=== PATIENT | male | born 1975 | race Caucasian/White ===

== ENCOUNTER 2020-08-04 04:41 | Emergency (ER) | payer BC, SELFPAY ==
--- NOTE | ~2020-08-04 | CT_ITS ---
EXAMINATION: CT abdomen pelvis wo con DATE: 08/04/2020 05:24 INDICATION: Left flank pain. TECHNIQUE: Computed tomography (CT) of the abdomen and pelvis was performed without intravenous contr ast. Automated exposure control and iterative reconstruction technique were employed. The dose-length product was 738.51 mGy-cm. COMPARISON: None FINDINGS: Lung bases are clear. Heart size is normal. No pericardial or pleural effusion. Cholecystectomy clips at the gallbladder fossa. Multiple splenic desiccation is consistent with old granulomatous disease. Liver, pancreas, bilateral adrenal glands are normal. 2-3 mm nonobstructing stone in the distal left ureter approximately 1 cm from the ureterovesicular junction. There is nonobstructing 1 mm stone at the lower pole of the right kidney. No hydronephrosis in either kidney. Partially decompressed bladde r is normal. Small bilateral fat-containing inguinal hernias. There is mild colonic diverticulosis wi th a descending colon predominance and without adjacent inflammatory change to suggest diverticulitis . Small bowel and appendix are normal. No free intraperitoneal gas or fluid. No pathologically enlarg ed abdominal or pelvic lymphadenopathy. No interval change in a likely benign small peripherally scle rotic lesion in the left ilium. IMPRESSION: 1. Bilateral nephrolithiasis with nonobstructing 2 to 3 mm stone at the distalmost left ureter. 2. Diverticulosis. Reviewed, dictated and finalized at location A. IMPRESSION: 1. Bilateral nephrolithiasis with nonobstructing 2 to 3 mm stone at the distalm ost left ureter. 2. Diverticulosis.
[2020-08-04 04:42] VITALS: BP 137/88; PULSE 69; RESP 16; TEMP 36; O2SAT 100
[2020-08-04 05:05] LABS: Basophils Absolute Auto 0.1 K/mm3 (0.0-0.1); Basophils Percent Auto 0.9 % (0.2-1.2); Eosinophils Absolute Auto 0.2 K/mm3 (0-0.3); Eosinophils Percent Auto 2.1 % (0-4.4); Hematocrit 47.8 % (42.0-52.0); Immature Granulocyte Absolute 0.04 K/mm3 (0.00-0.031); Immature Granulocyte Percent A 0.5 % (0-0.5); Lymphocytes Absolute Auto 2.78 K/mm3 (0.9-3.2); Lymphocytes Percent Auto 34.8 % (18.3-44.2); Mean Corpuscular HGB Conc 33.5 g/dl (32-36); Mean Corpuscular Hemoglobin 29.7 pg (26-34); Mean Corpuscular Volume 88.8 fl (80-100); Mean Platelet Volume 11.3 fl (7.4-10.4); Monocytes Absolute Auto 0.8 K/mm3 (0.1-0.6); Monocytes Percent Auto 10.1 % (2.6-8.5); Neutrophils Absolute Auto 4.1 K/mm3 (1.3-6.7); Neutrophils Percent Auto 51.6 % (45.5-73.1); Platelet Count Result 299 k/mm3 (150-375); Red Blood Count 5.38 M/mm3 (4.6-6.20); Red Cell Distribution Width 12.4 % (11.5-14.5)
[2020-08-04] MEDS: KETOROLAC 30 MG/ML VIAL (*BKC) IV PUSH (05:19)
[2020-08-04] MEDS: ONDANSETRON INJ 4 MG/2 ML VIAL IV PUSH (05:19)
[2020-08-04] MEDS: SODIUM CHLORIDE 0.9% IV 1,000 ML 999 ML IV CONT (05:19)
[2020-08-04 05:21] LABS: Add Urine Microscopic? YES; Anion Gap 9 mmol/L (8-16); Appearance Urine Clear (Clear); Bilirubin Urine Negative (Negative); Blood Urea Nitrogen 20 mg/dL (9-20); Blood Urine 3+ (Negative); Calcium 9.6 mg/dL (8.4-10.2); Carbon Dioxide 29 mmol/L (22-30); Chloride 103 mmol/L (98-107); Color Urine Yellow (Yellow); Estimated Glomerular Filt Rate > 60; Glucose 111 mg/dL (75-110); Glucose Urine UA Negative (Negative); Ketones Urine Negative (Negative); Leukocyte Esterase Ur Negative LEU/UL (Negative); Mucus Urine Heavy /lpf; Nitrate Urine Negative (Negative); Potassium 4.1 mmol/L (3.4-5.0); Protein Urine 1+ mg/dL (Negative); RBC Urine >75 /hpf (0-2); Sodium 141 mmol/L (137-145); Squamous Epithelial Cell Urine Rare /hpf (Few); Urobilinogen Urine Negative mg/dL (<2.0); WBC Urine 0-3 /hpf
--- NOTE | 2020-08-04 05:22 | ED.ABDPAIN ---
HPI - Abdominal Pain General Chief Complaint: Back Pain/Injury Stated Complaint: lower back pain Time Seen by Provider: 08/04/20 04:58 Source: patient Mode of arrival: ambulatory Limitations: no limitations History of Present Illness HPI narrative: Patient is a 45-year-old male complaining of left flank pain, sudden onset, 9 out of 10, nonradiating started prior to arrival, woke me up from sleep . Patient denies any nausea vomiting diarrhea or fever. Patient states that he has a history of kidney stones and presented with similar symptoms. Related Data Allergies Allergy/AdvReac Type Severity Reaction Status Date / Time prochlorperazine [Compazine] Allergy Intermediate Other Verified 08/04/20 05:01 PROCHLORPERAZINE EDISYLATE Allergy Severe dystonia, Uncoded 08/04/20 05:01 diff. breathing PROCHLORPERAZINE MALEATE Allergy Severe dystonia, Uncoded 08/04/20 05:01 diff. breathing Review of Systems Review of Systems: All systems reviewed & are unremarkable except as noted in HPI and below Constitutional: Constitutional: Denies body ache(s), Denies chills, Denies excessive sweating, Denies fatigue, Denies fever(s), Denies headache(s), Denies lethargy, Denies malaise, Denies weakness and Denies weight loss Eyes: Eyes: Denies blurry vision, Denies change in vision and Denies loss of vision ENT: Denies dizziness, Denies ear discharge, Denies headache(s), Denies lip swelling, Denies epistaxis, Denies nasal congestion, Denies neck pain, Denies throat swelling and Denies tongue swelling Cardiovascular: Cardiovascular: Denies chest pain, Denies chest pain at rest, Denies chest pain with activity, Denies diaphoresis, Denies rapid heart rate, Denies edema, Denies irregular heart rhythm, Denies lightheadedness, Denies palpitations, Denies dyspnea and Denies dyspnea on exertion Respiratory: Respiratory: Denies chest congestion, Denies cough, Denies hemoptysis, Denies dyspnea and Denies dyspnea on exertion Gastrointestinal: Gastrointestinal: Denies abdominal pain, Denies melena, Denies hematochezia, Denies diarrhea, Denies nausea, Denies vomiting and Denies hematemesis Musculoskeletal: Musculoskeletal: Denies abnormal gait, Denies deformity, Denies joint swelling, Denies limited range of motion, Denies neck pain and Denies numbness Neurologic: Denies Abnormal speech present, Denies abnormal gait, Denies confusion, Denies dizziness, Denies headache(s), Denies focal weakness, Denies loss of vision, Denies numbness, Denies Other visual disturbances, Denies Sensory deficit (Neuro) and Denies weakness Psychiatric: Psychiatric: Denies confusion, Denies depression, Denies auditory hallucinations, Denies homicidal ideation and Denies suicidal ideation Endocrine: Endocrine: Denies cold intolerance, Denies excessive sweating, Denies fatigue, Denies heat intolerance and Denies palpitations Hematologic/Lymphatic: Hematologic/Lymphatic: Denies easy bleeding and Denies easy bruising Allergic/Immunologic: Allergic/Immunologic: Denies lip swelling, Denies throat swelling and Denies tongue swelling PMFSH Family History Family History (Updated 06/10/14 @ 07:13 by DOCTOR UNKNOWN) Father Cerebrovascular accident Family history of chronic obstructive pulmonary disease Acute myocardial infarction Other Diabetes mellitus Family history of allergic disorder Family history of malignant neoplasm Hypertension Social History Social History Smoking status: Never smoker Alcohol intake: current Gender identity (if verbalized by the patient): Male Exam Const: General: cooperative, healthy appearing, comfortable, no acute distress, well developed, alert and awake; No confusion Orientation/consciousness: oriented to person, oriented to place, oriented to time, patient oriented x3 and No confusion Limitations: no limitations HENMT: Head: normal to inspection, normocephalic and atraumatic Ears: hearing grossly normal bilaterall
[2020-08-04 05:23] LABS: Specific Grav Ur 1.038 (1.001-1.035)
[2020-08-04 05:49] VITALS: TEMP 36
[2020-08-04 05:54] LABS: Lipase 102 U/L (23-300)
[2020-08-04 07:07] VITALS: BP 144/79; PULSE 74; RESP 16; TEMP 36.4; O2SAT 99
== END 2020-08-04 07:10 | disposition home or self-care (01) ==
PROVIDERS: Emergency Provider Emergency Medicine; PCP Family Medicine
DX: N20.2 Calculus of kidney with calculus of ureter (principal); Z87.442 Personal history of urinary calculi
CPT/HCPCS: 36415; 74176; 80048; 81001; 83690; 85025; 96361; 96374; 96375; 99284; J1885; J2405; J7030

== ENCOUNTER 2023-01-02 17:57 | Emergency (ER) | payer OTHER, SELFPAY ==
[2023-01-02 18:24] VITALS: BP 162/121; PULSE 85; RESP 24; TEMP 36.7; O2SAT 99
--- NOTE | 2023-01-02 18:54 | ED.URI ---
HPI - URI/Sore Throat General Chief Complaint: Upper Respiratory Infection Stated Complaint: uri Time Seen by Provider: 01/02/23 18:30 Source: patient Mode of arrival: ambulatory Limitations: no limitations History of Present Illness HPI Narrative: Oswaldo is a 47-year-old male patient presenting to clinic today for a possible sinus infection. He reports that he has had symptoms for 2 days. Reports sinus congestion, sneezing, and headache/sinus pressure. Possibly had a slight fever last night. States he is coughing up some green/yellow phlegm. MD elicited complaint: sore throat and nasal congestion Related Data Allergies Allergy/AdvReac Type Severity Reaction Status Date / Time prochlorperazine [Compazine] Allergy Intermediate Other Verified 01/02/23 18:33 PROCHLORPERAZINE EDISYLATE Allergy Severe dystonia, Uncoded 01/02/23 18:33 diff. breathing PROCHLORPERAZINE MALEATE Allergy Severe dystonia, Uncoded 01/02/23 18:33 diff. breathing Review of Systems Review of Systems: Pertinent positives per HPI. Patient denies any fever, chills, rash, headache, visual changes, dizziness, cough, shortness of breath, chest pain, palpitations, nausea, vomiting, diarrhea, constipation, abdominal pain, or any urinary issues. [facility] Family History Family History Father Cerebrovascular accident Family history of chronic obstructive pulmonary disease Acute myocardial infarction Other Diabetes mellitus Family history of allergic disorder Family history of malignant neoplasm Hypertension Social History Social History Smoking status: Never smoker Alcohol intake: current Gender identity (if verbalized by the patient): Male Comments At the time of my signature, I reviewed and agree with the nursing past medical, surgical, social, and family history. There is no relevant family history pertinent to the patient complaint. Exam Narrative: General: Well-developed, obese, in no apparent distress Head: Normocephalic, atraumatic Eyes: Pupils equally round and reactive to light bilaterally, EOM intact, sclera and conjunctive clear, no discharge, lids normal Ears: TMs intact and clear, ear canals clear, no drainage, grossly hearing normal. Nose: Nares patent, clear nasal discharge, moderate inflammation, no sinus tenderness. Mouth: Oral pharynx without lesions or masses, good dentition, MMM. Oropharynx red Neck: Supple, trachea midline, no enlargement of anterior or posterior cervical nodes, no thyroid masses or goiter palpable. Cardio: Regular rate and rhythm, s1 and s2 normal, no murmur appreciated. Resp: Clear to auscultation bilaterally, no rhonchi, rales, wheezing or rubs Course Course Emergency Course: Portions of this record may have been created with voice recognition software. Level of Care: Express Care Visit Vital Signs Vital signs: Vital Signs Temperature 36.7 C 01/02/23 18:24 Pulse Rate 85 01/02/23 18:24 Respiratory Rate 24 H 01/02/23 18:24 Blood Pressure 162/121 H 01/02/23 18:24 Pulse Oximetry 99 01/02/23 18:24 Oxygen Delivery Room Air 01/02/23 18:24 Temperature 36.7 C 01/02/23 18:24 Pulse Rate 85 01/02/23 18:24 Respiratory Rate 24 H 01/02/23 18:24 Blood Pressure 162/121 H 01/02/23 18:24 Pulse Oximetry 99 01/02/23 18:24 Oxygen Delivery Room Air 01/02/23 18:24 Vital signs reviewed MDM - URI/Sore Throat MDM Narrative Medical decision making narrative: At the time of visit patient is resting comfortably on the exam table. COVID and strep test were performed in the clinic today. Strep test was negative. COVID test was negative in the clinic today. I suspect patient has URI. Prescription for prednisone was sent to the pharmacy and supportive measures were discussed with the patient he voiced understanding discharge instruc
[2023-01-02 19:12] VITALS: BP 145/97; PULSE 81; RESP 20
== END 2023-01-02 19:12 | disposition home or self-care (01) ==
PROVIDERS: Emergency Provider Nurse Practitioner Family; PCP Nurse Practitioner Family
DX: J06.9 Acute upper respiratory infection, unspecified (principal); Z20.822 Contact with and (suspected) exposure to COVID-19
CPT/HCPCS: 87081; 87426; 87880; 99213; C9803; G0463

== ENCOUNTER 2023-04-01 06:58 | Inpatient (IN) | payer OTHER, SELFPAY ==
--- NOTE | ~2023-04-01 | CT_ITS ---
EXAMINATION: CT abdomen pelvis w con DATE: 04/01/2023 09:10 INDICATION: Left lower quadrant pain TECHNIQUE: Computed tomography (CT) of the abdomen and pelvis was performed with 100 cc Omnipaque 350 intravenous contrast. The dose-length product was 1542.32 mGy-cm. Automated exposure control and ite rative reconstruction technique were employed. COMPARISON: CT dated 08/04/2020 FINDINGS: Lung bases are unremarkable. Heart size normal. No significant pleural or pericardial effus ion. No significant vascular abnormality. No lymphadenopathy. There is focal thickening of the distal descending colon with associated colonic diverticula, adjacen t phlegmonous change and fluid. Possible small developing peridiverticular abscess, although wall not well delineated. Fatty infiltration of the liver. Status post cholecystectomy. There are calcified granulomas of the r ight lower lung and spleen. The pancreas, adrenal glands and left kidney are unremarkable. There is a 1 cm right renal cyst. Normal appendix. IMPRESSION: 1. Acute diverticulitis of the distal descending colon with possible developing peridiverticular absc ess. Reviewed, dictated and finalized at location [] IMPRESSION: 1. Acute diverticulitis of the distal descending colon with possible developing peridiverticular abscess.
[2023-04-01 07:04] VITALS: BP 136/89; PULSE 81; RESP 17; TEMP 36.7; O2SAT 98
[2023-04-01] MEDS: SODIUM CHLORIDE 0.9% IV 1,000 ML 999 ML IV CONT (07:48)
[2023-04-01] MEDS: MORPHINE SULFATE (*CRX) 4 MG/ML INJ IV PUSH ×4 (07:49→15:29)
[2023-04-01] MEDS: ONDANSETRON INJ 4 MG/2 ML VIAL IV PUSH (07:49)
[2023-04-01 07:56] VITALS: BP 128/82; PULSE 88; RESP 18; O2SAT 96
[2023-04-01 07:56] LABS: Basophils Absolute Auto 0.1 K/mm3 (0.0-0.1); Basophils Percent Auto 0.6 % (0.2-1.2); Eosinophils Absolute Auto 0.1 K/mm3 (0-0.3); Eosinophils Percent Auto 0.9 % (0-4.4); Hematocrit 46.3 % (42.0-52.0); Hemoglobin 15.7 g/dL (14.0-18.0); Immature Granulocyte Absolute 0.03 K/mm3 (0.00-0.031); Immature Granulocyte Percent A 0.3 % (0-0.5); Lymphocytes Absolute Auto 1.56 K/mm3 (0.9-3.2); Lymphocytes Percent Auto 13.1 % (18.3-44.2); Mean Corpuscular HGB Conc 33.9 g/dl (32-36); Mean Corpuscular Hemoglobin 30.1 pg (26-34); Mean Corpuscular Volume 88.7 fl (80-100); Mean Platelet Volume 11.4 fl (7.4-10.4); Monocytes Absolute Auto 0.8 K/mm3 (0.1-0.6); Monocytes Percent Auto 6.9 % (2.6-8.5); Neutrophils Absolute Auto 9.4 K/mm3 (1.3-6.7); Neutrophils Percent Auto 78.2 % (45.5-73.1); Platelet Count Result 291 k/mm3 (150-375); Red Blood Count 5.22 M/mm3 (4.6-6.20); Red Cell Distribution Width 12.7 % (11.5-14.5)
--- NOTE | 2023-04-01 08:00 | ED.GENADULT ---
HPI - General Adult General Chief complaint: Abdominal Pain Stated complaint: LLQ pain radiates to groin Time Seen by Provider: 04/01/23 07:15 History of Present Illness HPI narrative: Patient is a 48-year-old male who presents ER with abdominal pain. Left lower quadrant. Radiates into the groin but not testicles. Began last night and increased in intensity. Patient has history of diverticulitis. No fevers or chills or sweats. No diarrhea. No urinary frequency urgency or dysuria. No alleviating factors. Symptoms worse with physical movements and laying down flat. Related Data Allergies Allergy/AdvReac Type Severity Reaction Status Date / Time prochlorperazine [Compazine] Allergy Severe dystonia, Verified 04/01/23 15:06 diff. breathing Review of Systems Review of Systems: All systems reviewed & are unremarkable except as noted in HPI and below Constitutional: Constitutional: Denies chills, Denies fatigue and Denies fever(s) Cardiovascular: Cardiovascular: Denies chest pain and Denies rapid heart rate Respiratory: Respiratory: Denies cough and Denies dyspnea Gastrointestinal: Gastrointestinal: Reports abdominal pain, Denies diarrhea, Denies nausea and Denies vomiting Genitourinary: Genitourinary: Denies dysuria and Denies urinary frequency [facility] Past Medical History Medical History (Updated 04/01/23 @ 18:40 by Maycol Scott MD) Diverticulitis Kidney stone Mild acid reflux Surgical History Surgical History H/O colonoscopy History of laparoscopic cholecystectomy Family History Family History Father Cerebrovascular accident Family history of chronic obstructive pulmonary disease Acute myocardial infarction Other Diabetes mellitus Family history of allergic disorder Family history of malignant neoplasm Hypertension Social History Social History (Updated 04/01/23 @ 14:16 by Nory Frazier NP) Social History: The patient is and lives with his they have 2 children together. 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 He is a lifelong nonsmoker. Does not use any marijuana or illicit drugs Code status full code Smoking status: Never smoker Alcohol intake: current Substance use: never Lack of Transportation: No Lack of Food: Never True Current Housing: I Have Housing Concerned About Future Housing: No Difficulty Paying Gas/Electric Bills: No Difficulty Paying for Meds: No Currently Unemployed: No Education: High School Diploma/GED Difficulty w/ Childcare or Family Care: No Gender identity (if verbalized by the patient): Male Spiritual care concerns: No Exam Narrative: GENERAL: Uncomfortable-appearing, obese, and in no acute distress. HEAD: Normocephalic, atraumatic. EYES: PERRL and EOMI. ENT: Mucous membranes moist. CHEST: Clear to auscultation. No respiratory distress. HEART: Regular rate and rhythm. Normal peripheral pulses. ABDOMEN: Soft, tender palpation left lower quadrant with guarding, nondistended. EXTREMITIES: Normal range of motion. No edema. SKIN: Warm, dry, no rash. NEURO: Alert and oriented x3. PSYCH: Normal mood and affect. Course Course Emergency Course: Patient informed of diagnosis and treatment plan. Admit to hospitalist service with IV pain control and IV antibiotics. Surgery consulted but do not feel there is anything to drain at this time. Vital Signs Vital signs: Vital Signs Temperature 98.0 F 04/01/23 07:04 Pulse Rate 81 04/01/23 07:04 Respiratory Rate 17 04/01/23 07:04 Blood Pressure 136/89 04/01/23 07:04 Pulse Oximetry 98 04/01/23 07:04 Oxygen Delivery Room Air 04/01/23 07:04 Temperature 98.0 F 04/01/23 07:04 Pulse Rate 80 04/01/23 12:05 Respiratory Rate 18 04/01/23 12:05 Blood Pressure 128/75 04/01/23 12:05 Pulse Oximetry 1
[2023-04-01 08:34] LABS: Alanine Aminotransferase 41 U/L (6-50); Albumin Level 4.3 g/dL (3.5-5.1); Alkaline Phosphatase 75 U/L (38-126); Anion Gap 6 mmol/L (8-16); Aspartate Amino Transferase 31 U/L (17-59); Bilirubin,Total 0.9 mg/dL (0.2-1.3); Blood Urea Nitrogen 15 mg/dL (9-20); Calcium 8.6 mg/dL (8.4-10.2); Carbon Dioxide 27 mmol/L (22-30); Chloride 107 mmol/L (98-107); Estimated CRCL calculation 129 ml/min; Estimated Glomerular Filt Rate > 60; Glucose 111 mg/dL (65-110); Sodium 140 mmol/L (137-145)
[2023-04-01] MEDS: PIPERACILLN/TAZ 3.375GM/NS50ML 3.375 GM/50 ML BAG IVPB ×2 (10:04→17:48)
[2023-04-01 11:03] VITALS: BP 119/79; PULSE 78; RESP 18; O2SAT 97
--- NOTE | 2023-04-01 11:19 | ADMGEN ---
This patient, Oswaldo Ybarra, was admitted to Medical Room 254-01. Patient/family oriented to hospital policies and general routines including ID bracelet, bed and alarms, visiting hours, pain management, procedures, bathroom and other care routines, personal items, smoking policy, room service/diet, and visiting hours. Information on how to activate the Rapid Response Team has been discussed. Patient/Family are encouraged to report perceived risks to care and to ask questions if they do not understand what they are told or what they should do.
[2023-04-01 11:34] VITALS: BMI 82.5
[2023-04-01 12:05] VITALS: BP 128/75; PULSE 80; RESP 18; O2SAT 100
[2023-04-01] MEDS: SODIUM CHLORIDE 0.9% IV 1,000 ML 125 ML IV CONT ×2 (12:41→20:01)
--- NOTE | 2023-04-01 12:53 | PM.CNGS ---
Assessment and Plan Assessment and plan (1) Diverticulitis large intestine w/o perforation or abscess w/o bleeding: Code(s): K57.32 - Diverticulitis of large intestine without perforation or abscess without bleeding Status: Acute Assessment and Plan: I have reviewed the CT and discussed the findings with the patient. He has evidence of acute diverticulitis. There is some inflammatory change and fluid around the colon but there is no sign of free air or perforation. The patient has been admitted the hospital and was placed on IV Zosyn. Agree with this current treatment and will keep patient NPO except for ice chips. Discussed patient possibility needing emergent surgery if were to show worsening signs. Hopefully he will slowly improve with bowel rest IV antibiotics. History of Present Illness Consult details Consult date: 04/01/23 Reason for consult: other (Diverticulitis) Requesting physician: Maycol Scott MD Narrative: This is a 48-year-old man who presented to the emergency department this morning with left lower quadrant pain that started last night. His pain began after dinner and has persisted through the night. It was becoming more severe therefore he decided to come into the emergency department. He did have a minor episode of pain about 2 weeks ago while he was out of town but this resolved within 1 or 2 days. He has also had multiple episodes of diverticulitis over the past 5 or 6 years. Initially he was only getting episodes about once a year but now they have become more frequent and he is having at least 2 or 3 episodes a year. This is the 1st time he has been admitted into the hospital for diverticulitis. Other episodes have been treated in the ER and with outpatient antibiotics. He did have a colonoscopy at an outside facility within the past year and he states this was normal. He denies any blood in his stool. He denies any fevers or chills. Review of Systems Review of Systems: All systems reviewed & are unremarkable except as noted in HPI and below Constitutional: Constitutional: Denies chills and Denies fever(s) Eyes: Eyes: Denies change in vision ENT: Denies hearing loss, Denies neck pain and Denies sore throat Cardiovascular: Cardiovascular: Denies chest pain and Denies dyspnea Respiratory: Respiratory: Denies cough, Denies dyspnea and Denies wheezing Gastrointestinal: Gastrointestinal: Reports as per HPI Genitourinary: Genitourinary: Denies hematuria and Denies dysuria Musculoskeletal: Musculoskeletal: Denies arthralgias, Denies joint swelling and Denies neck pain Allergic/Immunologic: Allergic/Immunologic: Denies wheezing PMFSH Past Medical History Medical History (Updated 04/01/23 @ 12:59 by Omid Quinones DO) Diverticulitis Surgical History Surgical History (Updated 04/01/23 @ 12:57 by Omid Quinones DO) H/O colonoscopy History of laparoscopic cholecystectomy Family History Family History Father Cerebrovascular accident Family history of chronic obstructive pulmonary disease Acute myocardial infarction Other Diabetes mellitus Family history of allergic disorder Family history of malignant neoplasm Hypertension Social History Social History Smoking status: Never smoker Alcohol intake: current Substance use: never Lack of Transportation: No Lack of Food: Never True Current Housing: I Have Housing Concerned About Future Housing: No Difficulty Paying Gas/Electric Bills: No Difficulty Paying for Meds: No Currently Unemployed: No Education: High School Diploma/GED Difficulty w/ Childcare or Family Care: No Gender identity (if verbalized by the patient): Male Spiritual care concerns: No Meds Home Medications and Allergies Home Medications Medication Instructions Recorded Confirme
--- NOTE | 2023-04-01 13:38 | PM.IMHP ---
H&P: HPI History of Present Illness Date/Time: 04/01/23 13:38 Chief Complaint: Abdominal pain Narrative: This is a 48-year-old male patient who has a history of diverticulosis. The patient came to the emergency room with complaints of abdominal pain. The patient stated that he ate barbecue last night and did fine until about 9:00 p.m. last night. The patient stated he had left lower quadrant pain that went all way down to his testicles. This began last night was very intense. He feels like he has a fever today. No urinary symptoms no nausea vomiting or diarrhea. His symptoms are worse with movement. His white count is 12. Abdominal pelvis CT was read as the following?Acute diverticulitis of the distal descending colon with possible developing peridiverticular abscess. The patient was started on Zosyn and surgery has been consulted. I was given IV fluids morphine Zofran and Zosyn in the emergency room. The patient is being admitted to observation status on the date of service of 04/01/2023. Review of Systems Review of Systems: All systems reviewed & are unremarkable except as noted in HPI and below Constitutional: Constitutional: Reports as per HPI and Reports no additional constitutional complaints Eyes: Eyes: Reports as per HPI and Reports no additional eye complaints ENT: Reports system reviewed and no additional complaints, except as documented and Reports Normal hearing present Cardiovascular: Cardiovascular: Reports no additional cardiovascular complaints Respiratory: Respiratory: Reports no additional respiratory complaints and Reports no additional respiratory complaints Gastrointestinal: Gastrointestinal: Reports as per HPI and Reports no additional gastrointestinal complaints Musculoskeletal: Musculoskeletal: Reports no additional musculoskeletal complaints Integumentary/Breasts: Skin/Breast: Reports system reviewed and no additional complaints, except as docu and Reports as per HPI Neurologic: Reports system reviewed and no additional complaints, except as documented, Reports as per HPI and Reports Normal hearing present Psychiatric: Psychiatric: Reports no additional psychiatric complaints and Reports as per HPI Endocrine: Endocrine: Reports no additional endocrine complaints Hematologic/Lymphatic: Hematologic/Lymphatic: Reports no additional hematologic/lymphatic complaints Allergic/Immunologic: Allergic/Immunologic: Reports no additional allergic/immunologic complaints [facility] Past Medical History Medical History (Updated 04/01/23 @ 14:13 by Nory Frazier NP) Diverticulitis Kidney stone Mild acid reflux Surgical History Surgical History H/O colonoscopy History of laparoscopic cholecystectomy Family History Family History Father Cerebrovascular accident Family history of chronic obstructive pulmonary disease Acute myocardial infarction Other Diabetes mellitus Family history of allergic disorder Family history of malignant neoplasm Hypertension Social History Social History (Updated 04/01/23 @ 14:16 by Nory Frazier NP) Social History: The patient is and lives with his they have 2 children together. 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 He is a lifelong nonsmoker. Does not use any marijuana or illicit drugs Code status full code Smoking status: Never smoker Alcohol intake: current Substance use: never Lack of Transportation: No Lack of Food: Never True Current Housing: I Have Housing Concerned About Future Housing: No Difficulty Paying Gas/Electric Bills: No Difficulty Paying for Meds: No Currently Unemployed: No Education: High School Diploma/GED Difficulty w/ Childcare or Family Care: No Gender identity (if verbalized by the patient): Male Spiritual care concerns: No Meds Home Medications
[2023-04-01] MEDS: HYDROmorphone HCL INJ (*CRX) 1 MG/ML SYR 0.5 MG IV PUSH ×3 (16:50→23:54)
[2023-04-01 19:11] VITALS: BP 122/77; PULSE 73; RESP 20; TEMP 37.2; O2SAT 95
[2023-04-01 20:50] VITALS: TEMP 37.4
[2023-04-02] MEDS: PIPERACILLN/TAZ 3.375GM/NS50ML 3.375 GM/50 ML BAG IVPB ×5 (00:05→23:53)
[2023-04-02] MEDS: HYDROmorphone HCL INJ (*CRX) 1 MG/ML SYR 0.5 MG IV PUSH ×5 (04:04→23:00)
[2023-04-02] MEDS: SODIUM CHLORIDE 0.9% IV 1,000 ML 125 ML IV CONT (04:06)
[2023-04-02 04:36] VITALS: BP 118/71; PULSE 81; RESP 19; TEMP 36.6; O2SAT 95
[2023-04-02 05:42] LABS: Hematocrit 41.3 % (42.0-52.0); Hemoglobin 13.5 g/dL (14.0-18.0); Mean Corpuscular HGB Conc 32.7 g/dl (32-36); Mean Corpuscular Volume 91.8 fl (80-100); Mean Platelet Volume 11.3 fl (7.4-10.4); Platelet Count Result 261 k/mm3 (150-375); Red Cell Distribution Width 12.8 % (11.5-14.5); White Blood Count 12.2 K/mm3 (4.5-10.0)
[2023-04-02 06:00] LABS: Lactic Acid Reflex 0.9 mmol/L (0.7-2.0)
[2023-04-02 06:04] LABS: Anion Gap 6 mmol/L (8-16); Blood Urea Nitrogen 14 mg/dL (9-20); Calcium 7.8 mg/dL (8.4-10.2); Carbon Dioxide 27 mmol/L (22-30); Chloride 104 mmol/L (98-107); Estimated CRCL calculation 167 ml/min; Estimated Glomerular Filt Rate > 60; Glucose 105 mg/dL (65-110); Sodium 137 mmol/L (137-145)
--- NOTE | 2023-04-02 08:08 | PM.IMPN ---
Progress Note: A&P Assessment and Plan (1) Diverticulitis large intestine w/o perforation or abscess w/o bleeding: Code(s): K57.32 - Diverticulitis of large intestine without perforation or abscess without bleeding Status: Acute Assessment and Plan: Patient presented to the ED with c/o LLQ pain starting at 9pm the previous evening. H/O prior diverticulitis episodes but has never been hospitalized before. WBC 12.0 on admission and unchanged 04/02. Tmax 99.3F. CT abd/pelvis showed acute diverticulitis of the distal descending colon with possible developing peridiverticular abscess. General Surgery was consulted. Started on Zosyn 3.375 mg Q6 hours IVPB in ED, first dose 04/01/23. Clear liquid diet currently per surgery. Continue IV hydration Monitor stools and fever curve Continue PRN analgesics and antiemetics. Trend CBC Time Spent With Patient Time: 20 minutes time spent with patient assessment; patient education; review of labs, imaging, vitals, consult and nursing documentation. All questions answered to the best of my ability. Subjective Date/time seen: 04/02/23 08:08 Interval history: He reports his abdominal pain is a little improved today. He still has pain with movement and when using the restroom. No stools today. He denies nausea or emesis. He woke up this morning sweating and reports he had a fever yesterday. Tmax documented 99.3F last night. Review of Systems Review of Systems: All systems reviewed & are unremarkable except as noted in HPI and below Exam Narrative: General: No acute distress. Adult male sitting up in bed. Nontoxic appearing. Neuro/Psych: Awake, alert and oriented x4. Clear speech. Cooperative. Neutral mood and affect. No focal deficits. Cranial nerves 2-12 grossly intact. Skin: fair, warm, dry. No rashes or open wounds noted. HEENT: Normocephalic. Sclera is non-icteric. Pupils equal and round. Oral mucosa pink and moist. Neck: No JVD. Heart: S1 and S2 regular rate and rhythm. No murmurs, gallops, or rubs auscultated. Chest: Respirations even and unlabored. Lung sounds are clear to auscultation without wheezes, rhonchi, or rales. Abdomen: Soft, obese and tender to palpation LLQ. Bowel sounds present in all 4 quadrants. No guarding. Extremities: No edema, erythema or calf tenderness. Grossly normal ROM. Radial and dorsalis pedis pulses +2 bilaterally. Objective Data Vital Signs Vital Signs: Vital Signs - 24 hr 04/01/23 11:03 04/01/23 12:05 04/01/23 19:11 Temperature 99 F Pulse Rate 78 80 73 Respiratory Rate 18 18 20 Blood Pressure 119/79 128/75 122/77 Pulse Oximetry 97 100 95 04/01/23 20:50 04/02/23 04:36 Temperature 99.3 F 97.8 F Pulse Rate 81 Respiratory Rate 19 Blood Pressure 118/71 Pulse Oximetry 95 Intake/Output Intake/Output: Intake & Output 03/30/23 03/31/23 04/01/23 04/02/23 23:59 23:59 23:59 23:59 Intake Total 2100 1150 Output Total 350 Balance 2100 800 Meds/Results Medications: Active Medications Generic Name Dose Route Start Last Admin Trade Name Freq PRN Reason Stop Dose Admin Hydromorphone HCl 0.5 mg 04/01/23 15:37 04/02/23 07:00 Hydromorphone Hcl Inj (*Crx) 1 Mg/Ml Syr IV PUSH 0.5 mg Q3H PRN Administration Pain Rated 7-10 Piperacillin/Tazobactam/Dextrose 3.375 gm in 50 mls @ 100 mls/hr 04/01/23 17:00 04/02/23 06:40 Zosyn 3.375 Gm/Ns 50 Ml IVPB Infused Q6HR CECILY Infusion Sodium Chloride 1,000 mls @ 50 mls/hr 04/01/23 10:40 04/02/23 04:06 Normal Saline Iv IV CONT 125 mls/hr .Q20H CECILY Administration Ondansetron HCl 4 mg 04/01/23 10:39 Ondansetron Inj 4 Mg/2 Ml Vial IV PUSH Q4H PRN Nausea Radiology Results: ITS Impressions Abdomen/Pelvis CT 04/01/23 09:11 IMPRESSION: 1. Acute diverticulitis of the distal descending colon with possible developing peridiverticular abscess. Labs Labs: Laboratory Results - last 24
--- NOTE | 2023-04-02 12:39 | P.PNGS_ITS ---
Progress Note: A&P Assessment and Plan (1) Diverticulitis large intestine w/o perforation or abscess w/o bleeding: Code(s): K57.32 - Diverticulitis of large intestine without perforation or abscess without bleeding Status: Acute Assessment and Plan: * Patient showing improvement in pain, will start clear liquids today. * Continue IV Zosyn. * Repeat CBC in a.m.. Subjective Subjective Date/Time Seen: 04/02/23 12:39 Interval history: Pain improving, no fevers. Passing flatus, but no bowel movement since admission yet. Exam GI: Inspection: non-distended GI Palp: Yes Soft to palpation, Yes Tenderness to palpation present (GI) (Left lower quadrant), No Guarding due to palpation present (GI) and No Rebound tenderness present Auscultation: normal bowel sounds Objective Data Vital Signs Vital Signs: Vital Signs - 24 hr 04/01/23 19:11 04/01/23 20:50 04/02/23 04:36 Temperature 37.2 C 37.4 C 36.6 C Pulse Rate 73 81 Respiratory Rate 20 19 Blood Pressure 122/77 118/71 Pulse Oximetry 95 95 Oxygen Delivery 04/02/23 08:33 Temperature Pulse Rate Respiratory Rate Blood Pressure Pulse Oximetry Oxygen Delivery Room Air Intake/Output Intake/Output: Intake & Output 03/30/23 03/31/23 04/01/23 04/02/23 23:59 23:59 23:59 23:59 Intake Total 2100 1630 Output Total 350 Balance 2100 1280 Meds/Results Medications: Active Medications Generic Name Dose Route Start Last Admin Trade Name Freq PRN Reason Stop Dose Admin Hydromorphone HCl 0.5 mg 04/01/23 15:37 04/02/23 10:56 Hydromorphone Hcl Inj (*Crx) 1 Mg/Ml Syr IV PUSH 0.5 mg Q3H PRN Administration Pain Rated 7-10 Piperacillin/Tazobactam/Dextrose 3.375 gm in 50 mls @ 100 mls/hr 04/01/23 17:00 04/02/23 11:25 Zosyn 3.375 Gm/Ns 50 Ml IVPB 100 mls/hr Q6HR CECILY Administration Sodium Chloride 1,000 mls @ 50 mls/hr 04/01/23 10:40 04/02/23 11:25 Normal Saline Iv IV CONT 0 mls/hr .Q20H CECILY Infusion Ondansetron HCl 4 mg 04/01/23 10:39 Ondansetron Inj 4 Mg/2 Ml Vial IV PUSH Q4H PRN Nausea Radiology Results: ITS Impressions Abdomen/Pelvis CT 04/01/23 09:11 IMPRESSION: 1. Acute diverticulitis of the distal descending colon with possible developing peridiverticular abscess. Labs Labs: Laboratory Results - last 24 hr 04/02/23 05:04 WBC 12.2 H RBC 4.50 L Hgb 13.5 L Hct 41.3 L MCV 91.8 MCH 30.0 MCHC 32.7 RDW 12.8 Plt Count 261 MPV 11.3 H Sodium 137 Potassium 4.0 Chloride 104 Carbon Dioxide 27 Anion Gap 6 L BUN 14 Creatinine 0.90 Estim Creat Clear Calc 167 Estimated GFR > 60 Glucose 105 Lactic Acid 0.9 Calcium 7.8 L
[2023-04-02 13:55] VITALS: BP 124/68; PULSE 87; RESP 18; TEMP 36.6; O2SAT 96
[2023-04-02] MEDS: SODIUM CHLORIDE 0.9% IV 1,000 ML 50 ML IV CONT (18:19)
[2023-04-02 19:55] VITALS: BP 126/70; PULSE 74; RESP 18; TEMP 37.2; O2SAT 96
[2023-04-03] MEDS: ACETAMINOPHEN 500 MG TABLET 1000 MG PO (04:21)
[2023-04-03 06:00] VITALS: BP 123/60; PULSE 65; RESP 16; TEMP 36.6; O2SAT 96
[2023-04-03] MEDS: PIPERACILLN/TAZ 3.375GM/NS50ML 3.375 GM/50 ML BAG IVPB ×3 (06:02→18:09)
[2023-04-03 06:44] LABS: Basophils Percent Auto 0.4 % (0.2-1.2); Eosinophils Absolute Auto 0.1 K/mm3 (0-0.3); Eosinophils Percent Auto 0.7 % (0-4.4); Hematocrit 39.3 % (42.0-52.0); Hemoglobin 12.8 g/dL (14.0-18.0); Immature Granulocyte Absolute 0.04 K/mm3 (0.00-0.031); Immature Granulocyte Percent A 0.4 % (0-0.5); Lymphocytes Absolute Auto 1.79 K/mm3 (0.9-3.2); Lymphocytes Percent Auto 17.7 % (18.3-44.2); Mean Corpuscular HGB Conc 32.6 g/dl (32-36); Mean Corpuscular Hemoglobin 29.6 pg (26-34); Mean Corpuscular Volume 90.8 fl (80-100); Mean Platelet Volume 11.5 fl (7.4-10.4); Monocytes Absolute Auto 0.9 K/mm3 (0.1-0.6); Monocytes Percent Auto 9.2 % (2.6-8.5); Neutrophils Absolute Auto 7.3 K/mm3 (1.3-6.7); Neutrophils Percent Auto 71.6 % (45.5-73.1); Platelet Count Result 245 k/mm3 (150-375); Red Blood Count 4.33 M/mm3 (4.6-6.20); Red Cell Distribution Width 12.3 % (11.5-14.5); White Blood Count 10.1 K/mm3 (4.5-10.0)
[2023-04-03 06:53] LABS: Alanine Aminotransferase 45 U/L (6-50); Albumin Level 3.7 g/dL (3.5-5.1); Alkaline Phosphatase 69 U/L (38-126); Anion Gap 6 mmol/L (8-16); Aspartate Amino Transferase 33 U/L (17-59); Bilirubin,Total 1.3 mg/dL (0.2-1.3); Blood Urea Nitrogen 8 mg/dL (9-20); Calcium 8.3 mg/dL (8.4-10.2); Carbon Dioxide 29 mmol/L (22-30); Chloride 103 mmol/L (98-107); Estimated CRCL calculation 186 ml/min; Estimated Glomerular Filt Rate > 60; Glucose 111 mg/dL (65-110); Potassium 3.7 mmol/L (3.4-5.0); Sodium 138 mmol/L (137-145)
[2023-04-03 08:50] VITALS: RESP 16; O2SAT 96
--- NOTE | 2023-04-03 11:09 | PM.PNGS ---
Progress Note: A&P Assessment and Plan (1) Diverticulitis large intestine w/o perforation or abscess w/o bleeding: Code(s): K57.32 - Diverticulitis of large intestine without perforation or abscess without bleeding Status: Acute Assessment and Plan: Advance diet to low fiber Community Development Worker consult to educate on dietary changes OK to discharge from surgical standpoint. He may follow up as needed if he wants to discuss sigmoid resection in the future. Subjective Subjective Date/Time Seen: 04/03/23 11:09 Interval history: Pain continues to improve. No fevers. Tolerating liquids. Bowels moving. Exam GI: Inspection: non-distended GI Palp: Yes Soft to palpation, Yes Tenderness to palpation present (GI) (minimal if any) and No Guarding due to palpation present (GI) Objective Data Vital Signs Vital Signs: Vital Signs - 24 hr 04/02/23 13:55 04/02/23 19:55 04/03/23 06:00 Temperature 36.6 C 37.2 C 36.6 C Pulse Rate 87 74 65 Respiratory Rate 18 18 16 Blood Pressure 124/68 126/70 123/60 Pulse Oximetry 96 96 96 Oxygen Delivery 04/03/23 08:50 Temperature Pulse Rate Respiratory Rate 16 Blood Pressure Pulse Oximetry 96 Oxygen Delivery Room Air Intake/Output Intake/Output: Intake & Output 03/31/23 04/01/23 04/02/23 04/03/23 23:59 23:59 23:59 23:59 Intake Total 2100 3790 670 Output Total 350 Balance 2100 3440 670 Meds/Results Medications: Active Medications Generic Name Dose Route Start Last Admin Trade Name Freq PRN Reason Stop Dose Admin Acetaminophen 1,000 mg 04/03/23 04:11 04/03/23 04:21 Acetaminophen 500 Mg Tablet PO 1,000 mg Q6H PRN Administration Mild Pain (1-3) or Fever Hydromorphone HCl 0.5 mg 04/01/23 15:37 04/02/23 23:00 Hydromorphone Hcl Inj (*Crx) 1 Mg/Ml Syr IV PUSH 0.5 mg Q3H PRN Administration Pain Rated 7-10 Piperacillin/Tazobactam/Dextrose 3.375 gm in 50 mls @ 100 mls/hr 04/01/23 17:00 04/03/23 06:32 Zosyn 3.375 Gm/Ns 50 Ml IVPB Infused Q6HR CECILY Infusion Sodium Chloride 1,000 mls @ 50 mls/hr 04/01/23 10:40 04/03/23 06:32 Normal Saline Iv IV CONT 50 mls/hr .Q20H CECILY Infusion Ondansetron HCl 4 mg 04/01/23 10:39 Ondansetron Inj 4 Mg/2 Ml Vial IV PUSH Q4H PRN Nausea Radiology Results: ITS Impressions Abdomen/Pelvis CT 04/01/23 09:11 IMPRESSION: 1. Acute diverticulitis of the distal descending colon with possible developing peridiverticular abscess. Labs Labs: Laboratory Results - last 24 hr 04/03/23 06:12 WBC 10.1 H RBC 4.33 L Hgb 12.8 L Hct 39.3 L MCV 90.8 MCH 29.6 MCHC 32.6 RDW 12.3 Plt Count 245 MPV 11.5 H Immature Gran % (Auto) 0.4 Neut % (Auto) 71.6 Lymph % (Auto) 17.7 L Slope % (Auto) 9.2 H Eos % (Auto) 0.7 Baso % (Auto) 0.4 Lymph # (Auto) 1.79 Slope # (Auto) 0.9 H Eos # (Auto) 0.1 Baso # (Auto) 0.0 Abs Immat Gran (auto) 0.04 H Absolute Neuts (auto) 7.3 H Absolute Nucleated RBC 0.0 Nucleated RBC % 0.0 Sodium 138 Potassium 3.7 Chloride 103 Carbon Dioxide 29 Anion Gap 6 L BUN 8 L D Creatinine 0.80 Estim Creat Clear Calc 186 Estimated GFR > 60 Glucose 111 H Calcium 8.3 L Total Bilirubin 1.3 AST 33 ALT 45 Alkaline Phosphatase 69 Total Protein 7.0 Albumin 3.7
[2023-04-03 14:00] VITALS: BP 129/73; PULSE 69; RESP 18; TEMP 36.4; O2SAT 98
--- NOTE | 2023-04-03 14:48 | PM.IMPN ---
Progress Note: A&P Assessment and Plan (1) Diverticulitis large intestine w/o perforation or abscess w/o bleeding: Code(s): K57.32 - Diverticulitis of large intestine without perforation or abscess without bleeding Status: Acute Assessment and Plan: Patient presented to the ED with c/o LLQ pain starting at 9pm the previous evening. H/O prior diverticulitis episodes but has never been hospitalized before. WBC 12.0 on admission. Tmax 99.3F. CT abd/pelvis showed acute diverticulitis of the distal descending colon with possible developing peridiverticular abscess. Appreciate general surgery consultation and recommendation WBC improved today, 10.1. Remaining afebrile Tolerating clear liquids. Advance to full liquid diet. Further advanced to bland/low-fiber diet if tolerating well Patient okay to be discharged home if tolerating low-fiber diet Continue IV Zosyn at this time Will plan to transition to p.o. Augmentin following discharge to complete a full course of antibiotic Will discontinue IV fluids at this time as patient is tolerating oral intake Continue p.r.n. analgesics and antiemetics Plan for outpatient general surgery follow-up to consider sigmoid resection Subjective Date/time seen: 04/03/23 14:48 Interval history: Date of service: 04/03/2023 Oswaldo Ybarra is a 48-year-old male with a history of diverticulitis and kidney stones who is seen follow-up for acute diverticulitis. Patient reports he is feeling improved today. Endorses 3/10 left lower quadrant sharp abdominal pain that is worse with movements. Reports having a loose stool today. No blood in stool. Did have some nausea after having a few sips of soda this morning. No emesis. He has been tolerating clear liquids and is going to advance to full liquids. Woke up with sweats last night but denies any fevers or chills. Denies a headache at this time. No shortness of breath, cough, chest pain. Review of Systems Review of Systems: All systems reviewed & are unremarkable except as noted in HPI and below Exam Narrative: General: Well-nourished, well-appearing 48-year-old male, sitting up in bed, comfortable, NARD Neuro: awake, alert and oriented x4, speech clear, no focal neuro deficits noted HEENMT: normocephalic, atraumatic, EOMI, sclerae anicteric Respiratory: clear to auscultation bilaterally, nonlabored breathing Cardio: regular rate, regular rhythm with S1-S2 Abdomen: Protuberant, normoactive bowel sounds, soft, no tenderness to palpation Extremities: no edema, erythema, or tenderness to palpation, DP pulses 2+ bilaterally Skin: no rashes or lesions, warm and dry Psych: appropriate mood and affect, judgment and insight intact Objective Data Vital Signs Vital Signs: Vital Signs - 24 hr 04/02/23 19:55 04/03/23 06:00 04/03/23 08:50 Temperature 99.0 F 97.8 F Pulse Rate 74 65 Respiratory Rate 18 16 16 Blood Pressure 126/70 123/60 Pulse Oximetry 96 96 96 Oxygen Delivery Room Air 04/03/23 14:00 Temperature 97.6 F Pulse Rate 69 Respiratory Rate 18 Blood Pressure 129/73 Pulse Oximetry 98 Oxygen Delivery Intake/Output Intake/Output: Intake & Output 03/31/23 04/01/23 04/02/23 04/03/23 23:59 23:59 23:59 23:59 Intake Total 2100 3790 1996 Output Total 350 Balance 2100 3440 1996 Meds/Results Medications: Active Medications Generic Name Dose Route Start Last Admin Trade Name Freq PRN Reason Stop Dose Admin Acetaminophen 650 mg 04/03/23 14:40 Acetaminophen 325 Mg Tablet PO Q6H PRN Mild Pain (1-3) or Fever Hydrocodone Bitart/Acetaminophen 1 tab 04/03/23 14:39 Hydrocodone/Acetaminophen (*Crx) 5-325 Mg Tablet PO Q6H PRN Pain Rated 4-6 Hydromorphone HCl 0.5 mg 04/01/23 15:37 04/02/23 23:00 Hydromorphone Hcl Inj (*Crx) 1 Mg/Ml Syr IV PUSH 0.5 mg Q3H PRN Administration Pain Rated 7-10 Piperacillin/Tazobactam/Dextrose 3.375 gm in 50 mls
[2023-04-03] MEDS: HYDROcodone/acetaminophen (*CRX) 5-325 MG TABLET 1 TAB PO (18:37)
[2023-04-03 20:58] VITALS: BP 133/70; PULSE 72; RESP 17; TEMP 36.8; O2SAT 98
[2023-04-04] MEDS: PIPERACILLN/TAZ 3.375GM/NS50ML 3.375 GM/50 ML BAG IVPB ×2 (00:31→05:23)
[2023-04-04 05:20] LABS: Hematocrit 40.4 % (42.0-52.0); Hemoglobin 13.1 g/dL (14.0-18.0); Mean Corpuscular HGB Conc 32.4 g/dl (32-36); Mean Corpuscular Hemoglobin 29.4 pg (26-34); Mean Corpuscular Volume 90.8 fl (80-100); Mean Platelet Volume 10.9 fl (7.4-10.4); Platelet Count Result 272 k/mm3 (150-375); Red Blood Count 4.45 M/mm3 (4.6-6.20); Red Cell Distribution Width 12.5 % (11.5-14.5); White Blood Count 7.5 K/mm3 (4.5-10.0)
[2023-04-04 05:32] VITALS: BP 116/63; PULSE 64; RESP 18; TEMP 36.4; O2SAT 96
[2023-04-04 05:35] LABS: Anion Gap 3 mmol/L (8-16); Blood Urea Nitrogen 11 mg/dL (9-20); Calcium 8.8 mg/dL (8.4-10.2); Carbon Dioxide 34 mmol/L (22-30); Chloride 104 mmol/L (98-107); Estimated CRCL calculation 167 ml/min; Estimated Glomerular Filt Rate > 60; Glucose 105 mg/dL (65-110); Potassium 3.8 mmol/L (3.4-5.0); Sodium 141 mmol/L (137-145)
--- NOTE | 2023-04-04 10:24 | PM.DS ---
DS: Admitting Diagnosis Discharge Date 04/04/2023 Admitting Diagnosis Diverticulitis DS: Discharge Diagnosis Discharge Diagnosis (1) Diverticulitis large intestine w/o perforation or abscess w/o bleeding: Code(s): K57.32 - Diverticulitis of large intestine without perforation or abscess without bleeding Status: Acute Assessment and Plan: Patient presented to the ED with c/o LLQ pain starting at 9pm the previous evening. H/O prior diverticulitis episodes that did not require hospitalization WBC 12.0 on admission. Tmax 99.3F. CT abd/pelvis showed acute diverticulitis of the distal descending colon with possible developing peridiverticular abscess. He was seen in consultation by General surgery Received IV Zosyn during admission He had clinical improvement was slowly able to advance to a low-fiber diet which she will continue on discharge. Educated by dietitian during admission Leukocytosis resolved. Patient remained afebrile Discharge on p.o. Augmentin to complete a 14 day course Outpatient follow-up with General surgery to consider sigmoid resection Supportive care provided. Short course of analgesics given on discharge DS: Summary Hospital Course Hospital Course: Oswaldo Ybarra is a 48-year-old male with a history of diverticulitis and kidney stones who presented to the emergency department on 04/01/2023 with complaints of left lower quadrant pain. On presentation to the ED, his vital signs were stable, he was afebrile, WBC 12.0, additional laboratory workup unremarkable, CT of abdomen/pelvis showed acute diverticulitis of the distal descending colon with possible developing. Diverticular abscess. He was admitted to the hospitalist service for further evaluation and management was seen in consultation by General surgery. Please see above for further details. He had symptomatic improvement with bowel rest and IV antibiotics. He was able to slowly advance to a low-fiber diet which she will continue. Follow-up with General surgery as an outpatient. Will continue antibiotics to complete appropriate course. Discussed with the patient worrisome signs and symptoms for which to return and he was educated on his medications. He felt comfortable with plans for discharge home. He was discharged in hemodynamically stable condition on 04/04/2023. Time Spent with Patient Time attestation: Total time spent providing and/or coordinating discharge services: 45 minutes Time spent: Greater than 30 minutes Exam Narrative: General: Well-nourished, well-appearing 48-year-old male, sitting up in a chair comfortable, NARD Neuro: awake, alert and oriented x4, speech clear, no focal neuro deficits noted HEENMT: normocephalic, atraumatic, EOMI, sclerae anicteric Respiratory: clear to auscultation bilaterally, nonlabored breathing Cardio: regular rate, regular rhythm with S1-S2 Abdomen: Protuberant, normoactive bowel sounds, soft, no tenderness to palpation Extremities: no edema, erythema, or tenderness to palpation, DP pulses 2+ bilaterally Skin: no rashes or lesions, warm and dry Psych: appropriate mood and affect, judgment and insight intact DS: Data Data Completed and Pending Labs on day of discharge: Labs from last 24 hours 04/04/23 05:06 WBC 7.5 RBC 4.45 L Hgb 13.1 L Hct 40.4 L MCV 90.8 MCH 29.4 MCHC 32.4 RDW 12.5 Plt Count 272 MPV 10.9 H Sodium 141 Potassium 3.8 Chloride 104 Carbon Dioxide 34 H Anion Gap 3 L BUN 11 Creatinine 0.90 Estim Creat Clear Calc 167 Estimated GFR > 60 Glucose 105 Calcium 8.8 Imaging Radiologist's impression: ITS Impressions Abdomen/Pelvis CT 04/01/23 09:11 IMPRESSION: 1. Acute diverticulitis of the distal descending colon with possible developing peridiverticular abscess. Discharge Plan Discharge Attending physician on discharge: Todd Rucker Consulting providers: Omid Quinones Discharging Clinician:
== END 2023-04-04 11:03 | disposition home or self-care (01) | DRG 392 ==
LOC: ANHED 07:52 → ANH2MED 10:58
PROVIDERS: Nurse Practitioner; Nurse Practitioner Family; Surgery; Admitting Provider Internal Medicine; Emergency Provider Emergency Medicine; PCP Nurse Practitioner Family; Visit Provider Physician Assistant
DX: K57.20 Diverticulitis of large intestine with perforation and abscess without bleeding (principal); Z68.45 Body mass index [BMI] 70 or greater, adult; E66.9 Obesity, unspecified; K21.9 Gastro-esophageal reflux disease without esophagitis; Z87.442 Personal history of urinary calculi; Z90.49 Acquired absence of other specified parts of digestive tract
CPT/HCPCS: 36415; 74177; 80048; 80053; 83605; 85025; 85027; 96361; 96365; 96366; 96375; 96376; 99285; A9270; G0378; J1170; J2270; J2405; J2543; J7030; Q9967

== ENCOUNTER 2023-08-05 09:40 | Outpatient (CLI) | payer OTHER, SELFPAY ==
--- NOTE | 2023-08-05 10:18 | ECG_ITS ---
Measurements Intervals [place] Rate: 57 P: 27 TN: 171 QRS: -6 QRSD: 89 T: 11 QT: 404 QTc: 396 Interpretive Statements SINUS BRADYCARDIA LOW QRS VOLTAGE IN PRECORDIAL LEADS [QRS DEFLECTION < 1.0 mV IN CHEST LEADS] BORDERLINE ECG NO PREVIOUS ECG AVAILABLE FOR COMPARISON Electronically Signed On 08-05-2023 14:54:12 CDT by Shiv Gonzalez M.D.
[2023-08-05 10:48] LABS: Hematocrit 45.6 % (42.0-52.0); Hemoglobin 15.4 g/dL (14.0-18.0)
== END 2023-08-05 09:41 | disposition home or self-care (01) ==
LOC: ANHSURGERY 09:45
PROVIDERS: Anesthesiology; PCP Nurse Practitioner Family; Visit Provider Surgery
DX: K57.32 Diverticulitis of large intestine without perforation or abscess without bleeding (principal); Z01.818 Encounter for other preprocedural examination
CPT/HCPCS: 36415; 85014; 85018; 93005

== ENCOUNTER 2023-08-20 15:24 | Inpatient (IN) | payer OTHER, SELFPAY ==
[2023-08-05 09:44] VITALS: BMI 38.3
--- NOTE | 2023-08-05 09:44 | PC.NURSE ---
Addendum entered by Eloina Echavarria RN 08/05/23 10:10: NO HOME MEDS Original Note: PRE-OP INSTRUCTIONS, PLEASE READ CAREFULLY Report to the Outpatient Waiting Room, entrance under the green pavilion located off [address], at time _0630_ on date _08/20/23_. Planned Procedure Time: _0830_. PACK A SMALL OVERNIGHT BAG AND LEAVE IN THE CAR Time changes happen often and if your time is changed the preop area will call you the afternoon before. - You and your visitor will be asked to self-screen and do not enter if you have any COVID symptoms. - A mask is optional within the hospital at this time. -VISITING HOURS 8AM-8PM Patients may have clear liquids (ENSURE BUNDLE) until 3 hours prior to surgery (0530 AM) with a maximum of 20 ounces. - No food from midnight until time of surgery Take the following medications with a SIP of water the morning of surgery: DO NOT STOP ANY OF YOUR OTHER PRESCRIPTION MEDICATIONS PRIOR TO SURGERY ?EXCEPT THE FOLLOWING Medications to discontinue per physician Date to take last dose Please no make-up, nail belizean, hairspray, perfume, deodorant, or body powder the day of surgery. No jewelry (including any body piercings) or valuables the day of surgery, leave them at home. Please take a shower or bath the night before, or the morning of, surgery with an antibacterial soap. Wear comfortable, loose fitting clothing. - Jewelry must be removed prior to entering the operating room. Rings and piercings that are not removed may be cut off. - The hospital will not accept responsibility for valuables. - Please leave all valuables, including medications, at home the day of surgery. If you are going home after surgery, a licensed commercial driver's license driver must drive you home. - NO public transportation without another adult if you receive anesthesia. - We recommend that an adult stay with you for 24 hours following discharge. - We also recommend that you do not drive, make important decision, drink alcoholic beverages, or take any drugs that were not prescribed by your health care provider for at least 24 hours after your discharge time. Follow any additional instructions given to you from your surgeon. - DIET, PRE-OP ANTIBIOTICS, BOWEL PREP, HIBICLENS SHOWER DAY BEFORE AND AM OF SURGERY If you or anyone in your household have experienced Covid symptoms in the past week, please notify your surgeon or the nurse liaison at the phone number below for possible testing. Instructions given to _PATIENT & SPOUSE_and asked if any additional questions and then verbalized understanding. Patient advised to call surgeon office or pre surgery nurse liaison [phone] if any additional questions.
[2023-08-05 09:55] VITALS: BP 136/72; PULSE 58; RESP 20; TEMP 36.9; O2SAT 98
[2023-08-20] VITALS (17 sets, daily range): BP systolic 110–147; BP diastolic 68–87; PULSE 76–110; RESP 12–22; TEMP 36.5–37.2; O2SAT 20–100
[2023-08-20] MEDS: LACTATED RINGERS 1,000 ML 30 ML IV CONT ×2 (06:50→13:48)
[2023-08-20] MEDS: KETOROLAC 15 MG/ML VIAL (*BKC) IV PUSH (06:53)
[2023-08-20] MEDS: ACETAMINOPHEN 500 MG TABLET 1000 MG PO ×2 (06:53→17:51)
--- NOTE | 2023-08-20 07:19 | PM.IMHP ---
H&P: HPI History of Present Illness Date/Time: 08/20/23 07:19 Chief Complaint: Diverticulitis Narrative: This is a 48-year-old man who presents for robotic assisted laparoscopic sigmoid colectomy. He has had multiple episodes of diverticulitis in the past. He has been hospitalized recently but recovered from this and now wants to proceed with sigmoid colectomy. He reports no changes since last seen in the office. Review of Systems Review of Systems: All systems reviewed & are unremarkable except as noted in HPI and below Constitutional: Constitutional: Denies chills, Denies fever(s), Denies headache(s) and Denies weight loss Eyes: Eyes: Denies change in vision ENT: Denies dizziness, Denies headache(s), Denies neck mass and Denies throat swelling Cardiovascular: Cardiovascular: Denies chest pain, Denies lightheadedness and Denies dyspnea Respiratory: Respiratory: Denies cough, Denies dyspnea and Denies wheezing Gastrointestinal: Gastrointestinal: Denies abdominal pain, Denies change in bowel habits, Denies nausea and Denies vomiting Genitourinary: Genitourinary: Denies hematuria and Denies dysuria Musculoskeletal: Musculoskeletal: Reports as per HPI Integumentary/Breasts: Skin/Breast: Reports as per HPI Neurologic: Denies dizziness and Denies headache(s) Allergic/Immunologic: Allergic/Immunologic: Denies throat swelling and Denies wheezing PMFSH Past Medical History Medical History Diverticulitis Kidney stone Mild acid reflux Surgical History Surgical History H/O colonoscopy History of laparoscopic cholecystectomy Family History Family History Father Cerebrovascular accident Family history of chronic obstructive pulmonary disease Acute myocardial infarction Other Diabetes mellitus Family history of allergic disorder Family history of malignant neoplasm Hypertension Social History Social History Social History: The patient is and lives with his they have 2 children together. 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 He is a lifelong nonsmoker. Does not use any marijuana or illicit drugs Code status full code Smoking status: Never smoker Second hand tobacco smoke exposure: No Alcohol intake: current Alcohol use details: MAYBE 2-3 EVERY 6 MONTHS OR SO Substance use: never Substance use type: does not use Lack of Transportation: No Lack of Food: Never True Current Housing: I Have Housing Concerned About Future Housing: No Difficulty Paying Gas/Electric Bills: No Difficulty Paying for Meds: No Currently Unemployed: No Education: High School Diploma/GED Difficulty w/ Childcare or Family Care: No Living arrangements: with family Gender identity (if verbalized by the patient): Male Spiritual care concerns: No Meds Home Medications and Allergies Home Medications Medication Instructions Recorded Confirmed Type ciprofloxacin HCl 500 mg tablet 500 mg PO .COMPLEX #1 tablet 05/08/23 08/05/23 Rx metronidazole 500 mg tablet 500 mg PO .COMPLEX #3 tabs 05/08/23 08/05/23 Rx Allergies Allergy/AdvReac Type Severity Reaction Status Date / Time prochlorperazine [Compazine] Allergy Severe dystonia, Verified 08/05/23 09:56 diff. breathing Exam Const: General: no acute distress and alert Orientation/consciousness: patient oriented x3 HENMT: Head: normocephalic and atraumatic Ears: hearing grossly normal bilaterally Face/Nose/Sinus: Normal nares present Mouth: Yes Normal oral and palatal mucosa present Eyes: Periorbital: periorbital findings normal Sclera: sclerae normal EOM: EOMs intact bilaterally Neck: Neck: normal visual inspection, no lymphadenopathy and trachea midline Chest
--- NOTE | 2023-08-20 07:21 | WPDHPUPDATE1 ---
History and Physical Update Update Date/Time: 08/20/23 07:21 History and Physical has been reviewed, including an updated exam of the patient. There are NO changes in the patient's condition. Risks, benefits, and alternatives have been discussed and questions answered. Patient agrees to proceed with procedure.
--- NOTE | 2023-08-20 08:22 | WPDANESEPPF ---
Anes - Initial Pre Proc Eval Procedure: Operation Date: 08/20/23 08:30 Proposed Procedures p Laparoscopic Sigmoid Colectomy Davinci Assisted - Omid Quinones DO Date/Time: 08/20/23 08:22 Surgeon: Omid Quinones DO Pre Op Diagnosis: diverticulitis large intestine Patient Data Age: 48 Gender: M Height: 1.7 m Weight: 110.9 kg Last Vital Signs Temp 36.5 C 08/20/23 06:32 Pulse 86 08/20/23 06:32 Resp 18 08/20/23 06:32 BP 129/79 08/20/23 06:32 Pulse Ox 97 08/20/23 06:32 O2 Del Method Room Air 08/20/23 06:32 Allergies Allergy/AdvReac Type Severity Reaction Status Date / Time prochlorperazine [Compazine] Allergy Severe dystonia, Verified 08/20/23 07:59 diff. breathing Home Medications Medication Instructions Recorded Confirmed Type No Home Medications 08/20/23 08/20/23 History Laboratory Tests 08/20/23 06:43 Blood Type Pending Antibody Screen Pending Patient hx anesthesia problems: none Family hx anesthesia problems: none Results Review: All pre-operative results and documents have been reviewed as part of the pre-operative evaluation. [facility]LY [facility] Past Medical History Medical History Diverticulitis Kidney stone Mild acid reflux Surgical History Surgical History H/O colonoscopy History of laparoscopic cholecystectomy Family History Family History Father Cerebrovascular accident Family history of chronic obstructive pulmonary disease Acute myocardial infarction Other Diabetes mellitus Family history of allergic disorder Family history of malignant neoplasm Hypertension Social History Social History Social History: The patient is and lives with his they have 2 children together. 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 He is a lifelong nonsmoker. Does not use any marijuana or illicit drugs Code status full code Smoking status: Never smoker Second hand tobacco smoke exposure: No Alcohol intake: current Alcohol use details: MAYBE 2-3 EVERY 6 MONTHS OR SO Substance use: never Substance use type: does not use Lack of Transportation: No Lack of Food: Never True Current Housing: I Have Housing Concerned About Future Housing: No Difficulty Paying Gas/Electric Bills: No Difficulty Paying for Meds: No Currently Unemployed: No Education: High School Diploma/GED Difficulty w/ Childcare or Family Care: No Living arrangements: with family Gender identity (if verbalized by the patient): Male Spiritual care concerns: No Anes - Eval Final PreProcedure Day of Procedure 08/20/23 08:22 Patient weight: obese Heart: regular rate and rhythm Lungs: clear to auscultation Airway: Mallampati scale class II Neurological: alert and oriented Last oral intake: >/= 8 hours ASA classification: II Emergent: no Anesthetic plan: proceed Anesthesia type and monitoring: general ETT and standard monitoring Results Review: All pre-operative results and documents have been reviewed as part of the pre-operative evaluation. Informed Consent: The patient's anesthetic plan and its attendant risks and benefits were discussed with the patient/family/POA. Questions were solicited and answers provided to the satisfaction of the patient/family/POA.
[2023-08-20] MEDS: ceFAZolin 2 GM/D5W 50 ML 2 GM/50 ML BAG IVPB (09:00)
[2023-08-20] MEDS: BUPIVACAINE/EPINEPHRINE 0.5% 50 ML VIAL 30 ML INFILTRATE (09:48)
[2023-08-20] MEDS: INDOCYANINE GREEN 25 MG VIAL WITH DILUENT 3.75 MG IV PUSH (12:12)
[2023-08-20] MEDS: ceFAZolin SODIUM 1 GM VIAL 2 GM IV PUSH (13:00)
--- NOTE | 2023-08-20 13:47 | W.PM.PROC2 ---
Procedure Note - Detailed Date of Procedure 08/20/23 Pre-op Diagnosis diverticulitis large intestine Post-op Diagnosis Same Procedure Performed 1. Laparoscopic sigmoid colectomy with colorectal anastomosis, da Krissy assisted 2. Laparoscopic mobilization of splenic flexure, da Krissy assisted Surgeon Omid Quinones, Anesthesia General and Local (Exparel) Indications This is a 48-year-old man who presented with recurrent episodes of diverticulitis. He was hospitalized earlier this year and had a prolonged course in the hospital but eventually recovered without requiring emergent surgery. He followed up in the office and further discussion was made with the patient about continued treatment. He has had multiple episodes of diverticulitis and wanted to proceed with surgery to prevent recurrent episodes of diverticulitis. Discussions were made with the patient and decision was made to proceed with robotic assisted laparoscopic sigmoid colectomy. Findings Robotic assisted laparoscopic sigmoid colectomy was performed. The area of diverticulitis from the previous infections was identified in the more proximal sigmoid colon. The remainder of the distal sigmoid colon and rectum appeared healthy and viable. I did have to mobilize enough of the descending colon to adequately resect the affected segment. This also required taking down the splenic flexure to mobilize the distal transverse colon and descending colon down into the pelvis. After doing this I was able to bring the colon down into the pelvis without any tension. Once the resection locations were identified, I used indocyanine green intravenously to assess for adequate perfusion. Sigmoid colectomy was then performed and a 28 mm EEA stapler was chosen to perform the anastomosis. After completing the EEA anastomosis, leak check was then performed by filling the pelvis with sterile saline and insufflating air into the rectum. No air bubbles were identified leaking from the anastomosis. The anastomotic rings appeared intact as well. The sigmoid colon was sent to the lab for pathology. Description of Procedure Procedure as well as risks, benefits, and alternatives were discussed with the patient. Written consent was obtained and placed in chart prior to procedure. Patient was brought back to surgical suite. He was placed supine on operating table. Time-out was done to confirm patient and procedure. He was then intubated by the anesthesia department. He was then repositioned into a modified lithotomy position. His rectal area was prepped and draped in sterile fashion using Betadine prep and her abdomen was prepped and draped in sterile fashion using chlorhexidine prep. A 4 cm transverse mini Pfannenstiel incision was made in the lower abdomen using a 15 blade scalpel. Electrocautery was used for hemostasis and for dissection down to the linea alba. The anterior rectus sheath was then incised transversely using electrocautery. The anterior rectus sheath was carefully lifted off of the rectus muscle deep to it. The peritoneum was then incised vertically in between the rectus muscles using electrocautery. The Kwaku wound protector was then placed and this was clamped closed using a straight bowel clamp. A 8 mm incision was made in the right upper quadrant and a 5 mm Optiview trocar was advanced through the abdominal layers under direct visualization. Once inside the abdominal cavity, carbon dioxide insufflation was used to create a pneumoperitoneum. Camera was inserted and her abdomen was inspected laparoscopically. No immediate abnormalities were identified. The patient was placed in steep Trendelenburg position. A 12 mm incision was made in the right lower quadrant about 2 cm medial to the ASIS, and a 12 mm trocar was inserted under direct visualization. Three more 8 mm incisions were placed and 8 mm ports were placed under direct visualization on an oblique angle going up towards the left upper
[2023-08-20] MEDS: LACTATED RINGERS 1,000 ML 100 ML IV CONT ×4 (13:48→18:00)
[2023-08-20] MEDS: fentaNYL CITRATE INJ (*CRX) 100 MCG/2 ML VIAL 25 MCG IV PUSH ×2 (14:44→14:50)
--- NOTE | 2023-08-20 15:32 | ADMGEN ---
This patient, Oswaldo Ybarra, was admitted to -. Patient/family oriented to hospital policies and general routines including ID bracelet, bed and alarms, visiting hours, pain management, procedures, bathroom and other care routines, personal items, smoking policy, room service/diet, and visiting hours. Information on how to activate the Rapid Response Team has been discussed. Patient/Family are encouraged to report perceived risks to care and to ask questions if they do not understand what they are told or what they should do.
[2023-08-20] MEDS: PROPARACAINE HCL 0.5% 15 ML OPHTH SOLN 1 DROP EACH EYE (17:52)
[2023-08-20] MEDS: oxyCODONE HCL (*CRX) 5 MG TAB IR 10 MG PO (18:00)
[2023-08-20] MEDS: DICLOFENAC SODIUM 0.1% OPHTH SOLN 2.5 ML BOTTLE 1 DROP EACH EYE (21:10)
[2023-08-21] VITALS (10 sets, daily range): BP systolic 116–136; BP diastolic 67–79; PULSE 79–101; RESP 16–20; TEMP 36.1–37.1; O2SAT 94–98
[2023-08-21] MEDS: oxyCODONE HCL (*CRX) 5 MG TAB IR 10 MG PO ×3 (02:29→14:32)
[2023-08-21] MEDS: LACTATED RINGERS 1,000 ML 100 ML IV CONT (04:33)
[2023-08-21 05:19] LABS: Basophils Percent Auto 0.1 % (0.2-1.2); Hematocrit 41.2 % (42.0-52.0); Hemoglobin 13.3 g/dL (14.0-18.0); Immature Granulocyte Absolute 0.05 K/mm3 (0.00-0.031); Immature Granulocyte Percent A 0.4 % (0-0.5); Lymphocytes Absolute Auto 1.81 K/mm3 (0.9-3.2); Lymphocytes Percent Auto 13.3 % (18.3-44.2); Mean Corpuscular HGB Conc 32.3 g/dl (32-36); Mean Corpuscular Hemoglobin 29.2 pg (26-34); Mean Corpuscular Volume 90.5 fl (80-100); Mean Platelet Volume 11.4 fl (7.4-10.4); Monocytes Absolute Auto 1.3 K/mm3 (0.1-0.6); Monocytes Percent Auto 9.3 % (2.6-8.5); Neutrophils Absolute Auto 10.4 K/mm3 (1.3-6.7); Neutrophils Percent Auto 76.9 % (45.5-73.1); Platelet Count Result 258 k/mm3 (150-375); Red Blood Count 4.55 M/mm3 (4.6-6.20); Red Cell Distribution Width 12.7 % (11.5-14.5); White Blood Count 13.6 K/mm3 (4.5-10.0)
[2023-08-21 05:27] LABS: Anion Gap 4 mmol/L (8-16); Blood Urea Nitrogen 10 mg/dL (9-20); Calcium 8.3 mg/dL (8.4-10.2); Carbon Dioxide 28 mmol/L (22-30); Chloride 105 mmol/L (98-107); Estimated CRCL calculation 131 ml/min; Estimated Glomerular Filt Rate > 60; Glucose 120 mg/dL (65-110); Potassium 3.9 mmol/L (3.4-5.0); Sodium 137 mmol/L (137-145)
[2023-08-21] MEDS: DICLOFENAC SODIUM 0.1% OPHTH SOLN 2.5 ML BOTTLE 1 DROP EACH EYE ×3 (06:51→21:10)
[2023-08-21] MEDS: ENOXAPARIN 40 MG/0.4 ML SYRINGE SUB-Q (09:30)
--- NOTE | 2023-08-21 11:35 | PM.PNGS ---
Progress Note: A&P Assessment and Plan (1) Diverticulitis of intestine with abscess: Code(s): K57.80 - Diverticulitis of intestine, part unspecified, with perforation and abscess without bleeding Status: Acute Assessment and Plan: Advance to full liquids Increase activity Subjective Subjective Date/Time Seen: 08/21/23 11:35 Interval history: Passing flatus, also moved bowels. No nausea or vomiting. Tolerating clears. Not ambulating much yet. Exam GI: Inspection: non-distended and incision (intact with glue) GI Palp: Yes Soft to palpation and Yes Tenderness to palpation present (GI) (incisional) Auscultation: normal bowel sounds Objective Data Vital Signs Vital Signs: Vital Signs - 24 hr 08/20/23 13:48 08/20/23 14:00 08/20/23 14:15 Temperature 37.0 C Pulse Rate 90 84 84 Respiratory Rate 17 22 H 12 Blood Pressure 110/74 119/74 110/73 Pulse Oximetry 99 20 L 100 Oxygen Delivery Simple Face Mask Simple Face Mask Simple Face Mask Oxygen Flow Rate 6 6 6 Fraction of Inspired Oxygen 08/20/23 14:30 08/20/23 14:36 08/20/23 14:45 Temperature Pulse Rate 87 76 Respiratory Rate 18 15 Blood Pressure 121/68 125/76 Pulse Oximetry 100 100 99 Oxygen Delivery Simple Face Mask Room Air Room Air Oxygen Flow Rate 6 Fraction of Inspired Oxygen 08/20/23 14:56 08/20/23 15:00 08/20/23 15:15 Temperature Pulse Rate 80 81 Respiratory Rate 15 15 Blood Pressure 124/72 125/84 Pulse Oximetry 94 96 100 Oxygen Delivery Nasal Cannula Nasal Cannula Nasal Cannula Oxygen Flow Rate 2 2 2 Fraction of Inspired Oxygen 08/20/23 18:27 08/20/23 15:45 08/20/23 16:00 Temperature 36.6 C 36.8 C Pulse Rate 86 80 Respiratory Rate 16 18 Blood Pressure 130/86 131/86 Pulse Oximetry 97 100 100 Oxygen Delivery Nasal Cannula Oxygen Flow Rate 2 Fraction of Inspired Oxygen 08/20/23 16:30 08/20/23 17:30 08/20/23 20:00 Temperature 36.7 C 36.7 C Pulse Rate 84 90 Respiratory Rate 18 18 Blood Pressure 147/80 H 143/87 H Pulse Oximetry 100 99 97 Oxygen Delivery Nasal Cannula Oxygen Flow Rate 1 Fraction of Inspired Oxygen 08/20/23 22:03 08/21/23 01:41 08/21/23 05:09 Temperature 37.2 C 36.1 C L 36.3 C L Pulse Rate 110 H 101 H 89 Respiratory Rate 18 18 20 Blood Pressure 135/74 116/67 119/67 Pulse Oximetry 97 96 98 Oxygen Delivery Oxygen Flow Rate Fraction of Inspired Oxygen 08/21/23 08:33 08/21/23 08:43 08/21/23 09:09 Temperature 36.5 C Pulse Rate 84 Respiratory Rate 16 Blood Pressure 123/71 Pulse Oximetry 98 97 98 Oxygen Delivery Nasal Cannula Room Air Oxygen Flow Rate 1 Fraction of Inspired Oxygen 24 21 Intake/Output Intake/Output: Intake & Output 08/18/23 08/19/23 08/20/23 08/21/23 23:59 23:59 23:59 23:59 Intake Total 100 1960 Output Total 985 1100 Balance -885 860 Meds/Results Medications: Active Medications Generic Name Dose Route Start Last Admin Trade Name Freq PRN Reason Stop Dose Admin Acetaminophen 1,000 mg 08/20/23 18:00 08/21/23 06:51 Acetaminophen 500 Mg Tablet PO Not Given Q6HR CECILY Artificial Tears 1 drop 08/20/23 17:05 Artificial Tears Ophth Soln 15 Ml Bottle EACH EYE Q2H PRN Dry Eye(s) Diclofenac Sodium 1 drop 08/20/23 22:00 08/21/23 06:51 Diclofenac Sodium 0.1% Ophth Soln 2.5 Ml Bottle EACH EYE 08/24/23 21:59 1 drop Q8HR CECILY Administration Enoxaparin Sodium 40 mg 08/21/23 09:00 08/21/23 09:30 Enoxaparin 40 Mg/0.4 Ml Syringe SUB-Q 40 mg DAILY CECILY Administration Hydromorphone HCl 1 mg 08/20/23 15:24 Hydromorphone Hcl Inj (*Crx) 1 Mg/Ml Syr IV PUSH Q2H PRN Pain Rated 7-10 Hydromorphone HCl 0.5 mg 08/20/23 15:24 Hydromorphone Hcl Inj (*Crx) 1 Mg/Ml Syr IV PUSH Q2H PRN Pain Rated 4-6 Lactated Ringer's 1,000 mls @ 100 mls/hr 08/20/23 15:24 11/08/23 04:33 Lr - Lactated Ringers Iv IV CONT 100 mls/hr .
[2023-08-21] MEDS: ACETAMINOPHEN 500 MG TABLET 1000 MG PO ×3 (12:26→23:38)
[2023-08-22] MEDS: ACETAMINOPHEN 500 MG TABLET 1000 MG PO ×4 (05:04→23:26)
[2023-08-22] MEDS: DICLOFENAC SODIUM 0.1% OPHTH SOLN 2.5 ML BOTTLE 1 DROP EACH EYE ×3 (05:05→20:54)
[2023-08-22 05:08] LABS: Hematocrit 40.7 % (42.0-52.0); Mean Corpuscular HGB Conc 31.9 g/dl (32-36); Mean Corpuscular Hemoglobin 29.3 pg (26-34); Mean Corpuscular Volume 91.9 fl (80-100); Mean Platelet Volume 10.8 fl (7.4-10.4); Platelet Count Result 220 k/mm3 (150-375); Red Blood Count 4.43 M/mm3 (4.6-6.20); Red Cell Distribution Width 12.7 % (11.5-14.5); White Blood Count 8.6 K/mm3 (4.5-10.0)
[2023-08-22 05:18] LABS: Anion Gap 3 mmol/L (8-16); Blood Urea Nitrogen 12 mg/dL (9-20); Calcium 8.7 mg/dL (8.4-10.2); Carbon Dioxide 33 mmol/L (22-30); Chloride 102 mmol/L (98-107); Estimated CRCL calculation 133 ml/min; Estimated Glomerular Filt Rate > 60; Glucose 101 mg/dL (65-110); Potassium 3.8 mmol/L (3.4-5.0); Sodium 138 mmol/L (137-145)
[2023-08-22] MEDS: ENOXAPARIN 40 MG/0.4 ML SYRINGE SUB-Q (09:08)
--- NOTE | 2023-08-22 11:32 | PM.PNGS ---
Progress Note: A&P Assessment and Plan (1) Diverticulitis of intestine with abscess: Code(s): K57.80 - Diverticulitis of intestine, part unspecified, with perforation and abscess without bleeding Status: Acute Assessment and Plan: Advance to low residue diet Winkler catheter removed today Continue to increase activity, ambulate in the halls today Repeat labs tomorrow Subjective Subjective Date/Time Seen: 08/22/23 09:32 Post Op day: 2 Patient reports: no new complaints, feels better, tolerating liquids well, flatus, bowel movement and afebrile Interval history: Patient doing well pod2. His incisional pain has improved and he has only taken tylenol today. He is doing well with full liquids. No nausea, vomiting, or bloating. He has bee walking in the room but plans on walking in the [place] today. Winkler removed this morning and waiting to void. Review of Systems Review of Systems: All systems reviewed & are unremarkable except as noted in HPI and below Exam Const: General: comfortable, no acute distress and awake Orientation/consciousness: patient oriented x3 Resp: Effort & Inspection: normal respiratory effort Auscultation: clear to auscultation bilaterally Cardio: Rate: regular rate Rhythm: regular rhythm GI: Inspection: non-distended and incision (incisions dry and intact) GI Palp: Yes Soft to palpation and Yes Tenderness to palpation present (GI) (incisional) Auscultation: normal bowel sounds Neuro: General: moves all extremities and no focal motor deficits Extrem: General: no calf tenderness and no edema Psych: Mental Status: mental status grossly normal Insight: Good insight present (Psych) Objective Data Vital Signs Vital Signs: Vital Signs - 24 hr 08/21/23 13:09 08/21/23 17:09 08/21/23 20:04 Temperature 98.5 F 97.6 F 98.7 F Pulse Rate 90 84 79 Respiratory Rate 16 16 18 Blood Pressure 134/71 136/79 122/73 Pulse Oximetry 95 94 97 Oxygen Delivery 08/21/23 20:00 08/21/23 22:58 08/22/23 09:00 Temperature Pulse Rate Respiratory Rate Blood Pressure Pulse Oximetry 97 Oxygen Delivery Room Air Room Air Room Air Intake/Output Intake/Output: Intake & Output 08/19/23 08/20/23 08/21/23 08/22/23 23:59 23:59 23:59 23:59 Intake Total 100 3130 240 Output Total 980 1900 1800 Balance -885 1230 -1560 Meds/Results Medications: Active Medications Generic Name Dose Route Start Last Admin Trade Name Jackie PRN Reason Stop Dose Admin Acetaminophen 1,000 mg 08/20/23 18:00 08/22/23 05:04 Acetaminophen 500 Mg Tablet PO 1,000 mg Q6HR CECILY Administration Artificial Tears 1 drop 08/20/23 17:05 Artificial Tears Ophth Soln 15 Ml Bottle EACH EYE Q2H PRN Dry Eye(s) Diclofenac Sodium 1 drop 08/20/23 22:00 08/22/23 05:05 Diclofenac Sodium 0.1% Ophth Soln 2.5 Ml Bottle EACH EYE 08/24/23 21:59 1 drop Q8HR CECILY Administration Enoxaparin Sodium 40 mg 08/21/23 09:00 08/22/23 09:08 Enoxaparin 40 Mg/0.4 Ml Syringe SUB-Q 40 mg DAILY CECILY Administration Hydromorphone HCl 1 mg 08/20/23 15:24 Hydromorphone Hcl Inj (*Crx) 1 Mg/Ml Syr IV PUSH Q2H PRN Pain Rated 7-10 Hydromorphone HCl 0.5 mg 08/20/23 15:24 Hydromorphone Hcl Inj (*Crx) 1 Mg/Ml Syr IV PUSH Q2H PRN Pain Rated 4-6 Ondansetron HCl 4 mg 08/20/23 15:24 Ondansetron Inj 4 Mg/2 Ml Vial IV PUSH Q4H PRN Nausea And Vomiting Oxycodone HCl 5 mg 08/20/23 15:24 Oxycodone Hcl (*Crx) 5 Mg Tab Ir PO Q4H PRN Pain Rated 4-6 Oxycodone HCl 10 mg 08/20/23 15:24 08/21/23 14:32 Oxycodone Hcl (*Crx) 5 Mg Tab Ir PO 10 mg Q4H PRN Administration Pain Rated 7-10 Labs Labs: Laboratory Results - last 24 hr 08/22/23 04:56 WBC 8.6 RBC 4.43 L Hgb 13.0 L Hct 40.7 L MCV 91.9 MCH 29.3 MCHC 31.9 L RDW 12.7 Plt Count 220 MPV 10.8 H Sodium 138 Potassium 3.8 Chloride 102 Carbon Dioxi
[2023-08-22] MEDS: oxyCODONE HCL (*CRX) 5 MG TAB IR 10 MG PO (12:23)
[2023-08-22 19:44] VITALS: BP 141/83; PULSE 72; RESP 20; TEMP 36.5; O2SAT 98
[2023-08-22 22:38] VITALS: O2SAT 98
[2023-08-23] MEDS: ACETAMINOPHEN 500 MG TABLET 1000 MG PO ×2 (05:03→11:34)
[2023-08-23 05:10] VITALS: BP 127/70; PULSE 63; RESP 20; TEMP 36.2; O2SAT 95
[2023-08-23 05:49] LABS: Hematocrit 40.9 % (42.0-52.0); Hemoglobin 13.5 g/dL (14.0-18.0); Mean Corpuscular Hemoglobin 29.5 pg (26-34); Mean Corpuscular Volume 89.3 fl (80-100); Mean Platelet Volume 11.1 fl (7.4-10.4); Platelet Count Result 244 k/mm3 (150-375); Red Blood Count 4.58 M/mm3 (4.6-6.20); Red Cell Distribution Width 12.4 % (11.5-14.5); White Blood Count 6.8 K/mm3 (4.5-10.0)
[2023-08-23 05:59] LABS: Anion Gap 6 mmol/L (8-16); Blood Urea Nitrogen 15 mg/dL (9-20); Calcium 9.1 mg/dL (8.4-10.2); Carbon Dioxide 31 mmol/L (22-30); Chloride 103 mmol/L (98-107); Estimated CRCL calculation 130 ml/min; Estimated Glomerular Filt Rate > 60; Glucose 104 mg/dL (65-110); Potassium 3.6 mmol/L (3.4-5.0); Sodium 140 mmol/L (137-145)
[2023-08-23] MEDS: ENOXAPARIN 40 MG/0.4 ML SYRINGE SUB-Q (08:24)
--- NOTE | 2023-08-23 11:01 | PC.NURSE ---
On 08/23/23, the student, [Monik Salomon], provided care and completed [facility] documentation on this patient. I have reviewed the student's documentation and agree with the findings.
--- NOTE | 2023-08-23 12:03 | PM.DS ---
DS: Admitting Diagnosis Discharge Date 08/23/2023 Admitting Diagnosis Diverticulitis of large intestine with perforation and abscess DS: Discharge Diagnosis Discharge Diagnosis (1) Diverticulitis of intestine with abscess: Qualifiers: Diverticulitis site: large intestine Diverticulitis bleeding: without bleeding Qualified Code(s): K57.20 - Diverticulitis of large intestine with perforation and abscess without bleeding Code(s): K57.80 - Diverticulitis of intestine, part unspecified, with perforation and abscess without bleeding Status: Acute DS: Summary Hospital Course Reason for hospitalization: Diverticulitis Hospital Course: This is a 48-year-old man who presented with multiple prior episodes of sigmoid diverticulitis. He presented to the hospital on 08/20/2023 for robotic assisted laparoscopic sigmoid colectomy. Surgery was uncomplicated and he was admitted to the hospital surgical floor postoperatively. He was initially started on a clear liquid diet and Winkler catheter was kept in place. He was complaining of some eye irritation postoperatively and eyedrops were ordered to help with any potential corneal abrasion or other issue. He was tolerating the liquid diet and was advanced to a full liquid diet postop day 1. His Winkler catheter was removed on postop day 2. He was also advanced to a soft regular diet on postop day 2. His bowels were moving and he denied any nausea or vomiting. His pain was well controlled most of the time with just Tylenol, but occasionally he did require oxycodone. He was ambulating with minimal difficulty and continued to do well and was hemodynamically stable. Pathology showed evidence of diverticulitis with perforation and abscess. He was discharged home on 08/23/2023. Status at Discharge Functional status at discharge: independent ambulation Overall status at discharge: patient is progressing back to baseline Time Spent with Patient Time attestation: Total time spent providing and/or coordinating discharge services: Time spent: Less than 30 minutes Exam Const: General: comfortable and no acute distress Orientation/consciousness: patient oriented x3 Resp: Effort & Inspection: normal respiratory effort Auscultation: clear to auscultation bilaterally Cardio: Rate: regular rate Rhythm: regular rhythm GI: Inspection: normal to inspection, non-distended and incision (Intact with glue) GI Palp: Yes Soft to palpation, Yes Tenderness to palpation present (GI) (Incision) and No Guarding due to palpation present (GI) Auscultation: normal bowel sounds DS: Data Data Completed and Pending Completed studies during hospitalization: Pending at discharge 08/20/23 13:24 Surgical [PTH] Routine Labs on day of discharge: Labs from last 24 hours 08/23/23 05:32 WBC 6.8 RBC 4.58 L Hgb 13.5 L Hct 40.9 L MCV 89.3 MCH 29.5 MCHC 33.0 RDW 12.4 Plt Count 244 MPV 11.1 H Sodium 140 Potassium 3.6 Chloride 103 Carbon Dioxide 31 H Anion Gap 6 L BUN 15 Creatinine 0.70 Estim Creat Clear Calc 130 Estimated GFR > 60 Glucose 104 Calcium 9.1 Discharge Plan Discharge Attending physician on discharge: Omid Quinones Discharging Clinician: Omid Quinones Patient Disposition: Home, Self-Care Activity: may shower and other - see discharge instructions Diet: low fiber Wound Care Instructions: other - see discharge instructions Discharge Instructions: Postoperative instructions Okay to shower, no bathing or soaking for 2 weeks No lifting greater than 10-15 lb for [address] in 1 week Continue soft regular diet for 1 more week, then no dietary restrictions Call office for increasing pain, fevers, rapid heart rate, or other problems with incisions. Patient Instructions: Antibiotic Form, How to Stop Smoking (GEN) Stand Alone Forms: General Discharge Information Follow-up/Referrals: Omid Quinones
== END 2023-08-23 13:35 | disposition home or self-care (01) | DRG 331 ==
LOC: ANH2MED 15:40
PROVIDERS: Nurse Practitioner Family; Admitting Provider Surgery; PCP Nurse Practitioner Family; Visit Provider Surgery
PROC: 0DBN4ZZ Excision of Sigmoid Colon, Percutaneous Endoscopic Approach (ICD-10-PCS; principal; 2023-08-20 08:30)
DX: K57.20 Diverticulitis of large intestine with perforation and abscess without bleeding (principal); E66.9 Obesity, unspecified; Z68.38 Body mass index [BMI] 38.0-38.9, adult; Z90.49 Acquired absence of other specified parts of digestive tract
CPT/HCPCS: 36415; 80048; 85025; 85027; 86850; 86900; 86901; 88307; A9270; C1729; J0690; J1100; J1170; J1650; J1885; J2250; J2405; J2704; J3010; J7030; J7120

== ENCOUNTER 2024-11-19 17:14 | Emergency (ER) | payer OTHER, SELFPAY ==
--- NOTE | 2024-11-19 17:20 | ED.URI ---
HPI - URI/Sore Throat General Chief Complaint: Nausea/Vomiting/Diarrhea Stated Complaint: Bodyaches/Chills/Diarrhea Time Seen by Provider: 11/19/24 17:18 Source: patient Mode of arrival: ambulatory Limitations: no limitations History of Present Illness HPI Narrative: Oswaldo is a 49-year-old male patient presenting to the clinic today with complaints of fever, body aches, cough, congestion, chills, and diarrhea x2 days. Highest fever of 102? F. He denies any chest pain or shortness of breath. Related Data Allergies Allergy/AdvReac Type Severity Reaction Status Date / Time prochlorperazine (Compazine) Allergy Severe dystonia, Verified 11/19/24 17:20 diff. breathing Review of Systems Review of Systems: Pertinent positives per HPI. Patient denies any rash, headache, visual changes, dizziness, sore throat, shortness of breath, chest pain, palpitations, nausea, vomiting, constipation, abdominal pain, or any urinary issues. [facility] Past Medical History Medical History Mild acid reflux Kidney stone Diverticulitis Surgical History Surgical History History of colectomy 08/20/23 Laparoscopic sigmoid colectomy with colorectal anastomosis, da Krissy assisted, Laparoscopic mobilization of splenic flexure, da Krissy assisted History of laparoscopic cholecystectomy H/O colonoscopy Family History Family History Father Cerebrovascular accident Family history of chronic obstructive pulmonary disease Acute myocardial infarction Other Diabetes mellitus Family history of allergic disorder Family history of malignant neoplasm Hypertension Social History Social History Social History: The patient is and lives with his they have 2 children together. 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 He is a lifelong nonsmoker. Does not use any marijuana or illicit drugs Code status full code Smoking status: Never smoker Lack of Transportation: No Lack of Food: Never True Current Housing: I Have Housing Concerned About Future Housing: No Difficulty Paying Gas/Electric Bills: No Difficulty Paying for Meds: No Currently Unemployed: No Education: High School Diploma/GED Difficulty w/ Childcare or Family Care: No Gender identity (if verbalized by the patient): Male Comments At the time of my signature, I reviewed and agree with the nursing past medical, surgical, social, and family history. There is no relevant family history pertinent to the patient complaint. Exam Narrative: General: Well-developed, obese, in no apparent distress Head: Normocephalic, atraumatic Eyes: Pupils equally round and reactive to light bilaterally, EOM intact, sclera and conjunctive clear, no discharge, lids normal Ears: TMs intact and congested, ear canals clear, no drainage, grossly hearing normal. Nose: Nares patent, clear nasal discharge, no inflammation, no sinus tenderness. Mouth: Oropharynx without lesions or masses, good dentition, MMM. Neck: Supple, trachea midline, no enlargement of anterior or posterior cervical nodes, no thyroid masses or goiter palpable. Cardio: Regular rate and rhythm, s1 and s2 normal, no murmur appreciated. Resp: Clear to auscultation bilaterally anteriorly and posteriorly, no rhonchi, rales, wheezing or rubs Abdomen: Soft, pliable, nondistended, bowel sounds present all 4 quadrants, nontender to palpation, no organomegaly, no CVAT tenderness Course Course Emergency Course: Portions of this record may have been created with voice recognition software. Level of Care: Express Care Visit Vital Signs Vital signs: Vital Signs Temperature 36.8 C 11/19/24 17:29 Pulse Rate 90 11/19/24 17:29 Respiratory Rate 15 11/19/24 17:29 Blood Pressure 134/91 H 11/19/24 17:29 Pulse Oximetry 97 11/19/24 17:29 Oxygen Delivery Room Air 11/19/24 17:29 Temperature 36.8 C 11/19/24 17:29 Pulse Rate 90 11/19/24 17:29 Respiratory Rate 15 11/19/24 17:29 Blood Pressure 134/91 H 11/19/24 17:29 Pulse Oximetry 97 11/19/24 17:29 Oxygen Delivery Room Air 11/19/24 17:29 Vital signs reviewed MDM - URI/Sore Throat MDM Narrative Medical decision making narrative: At the time of visit patient is resting comfortably on the exam table. Patient appears to be nontoxic. Labs: Influenza testing was performed and was positive for influenza B. Plan: Patient has influenza B. Prescription for Tamiflu was sent to the pharmacy. Risk and benefits is medication was discussed with the patient. Supportive measures were discussed with the patient and they voiced understanding discharge instructions and agrees to treatment plan. Return precautions reviewed Differential Diagnosis Differential diagnosis: Likely upper respiratory infection, croup, otitis media, sinusitis, viral infection, bronchitis, influenza, pharyngitis and other (COVID) Lab Data Labs: Lab Results 11/19/24 Range/Units 17:31 POC Influenza A Ag Pending POC Influenza B Ag Pending Discharge Plan Discharge Clinical Impression: Influenza B Patient Disposition: Home, Self-Care Condition: Stable Instructions: Antibiotic Form, Influenza (ED) Additional Instructions: Take prescription medications only as prescribed-Tamiflu May take Imodium as needed for diarrhea as long as there is no blood in your stools Increase fluids and stay well hydrated Tylenol/motrin for pain/fever Flonase and OTC antihistamines as directed Vicks vapor rub to open sinuses Sinus rinses for congestion Cepacol spray, cough drops, throat lozenges, warm tea with honey/lemon, gargle salt water to soothe throat BRAT diet for diarrhea Clear liquids x 24 hours then advance as tolerated for nausea/vomiting Go to the ED if you develop a worsening in your condition- high fever not controlled by Tylenol or Motrin, dehydration, weakness, lethargy, shortness of breath, or chest pain. Follow up with your PCP in 3-5 days if symptoms persist. Patient Language: Lebanese Prescriptions: New oseltamivir [Tamiflu] 75 mg capsule 75 mg PO Q12H 5 Days Qty: 10 0RF Follow-up/Referrals: PHYSICIAN,PRODUCTION INSPECTOR [Primary Care Provider] - Stand Alone Forms: Work/School Release IP Time of Disposition: 17:32 Quality NIHSS Nursing Documentation ED NIHSS nursing documentation: reviewed/agree
[2024-11-19 17:29] VITALS: BP 134/91; PULSE 90; RESP 15; TEMP 36.8; O2SAT 97
[2024-11-19 17:33] LABS: EDINFLUASCREEN Negative (Negative); EDINFLUBSCREEN Positive (Negative)
== END 2024-11-19 17:40 | disposition home or self-care (01) ==
PROVIDERS: Emergency Provider Nurse Practitioner Family
DX: J10.1 Influenza due to other identified influenza virus with other respiratory manifestations (principal)
CPT/HCPCS: 87804; 99213; G0463